=== PATIENT | female | born 1935 | race Caucasian/White ===

== ENCOUNTER 2024-01-16 19:47 | Emergency (ER) | payer MEDICARE, SELFPAY ==
[2024-01-16 19:51] VITALS: BP 117/72; PULSE 95; RESP 14; TEMP 36.7; O2SAT 99
[2024-01-16 19:53] VITALS: PULSE 95; RESP 20; O2SAT 98
--- NOTE | 2024-01-16 19:55 | ED.GENADUL1 ---
HPI - General Adult General Chief complaint: Recheck/Abnormal Lab/Rx Stated complaint: LOW HEMOGLOBIN Time Seen by Provider: 01/16/24 19:54 Limitations: other (Pt is non-verbal and has a trach/ventilated patient) Limitations comment: ventilated patient, non verbal History of Present Illness HPI narrative: This 88-year-old female was [place] [facility] [place] [facility] [place] of acute anemia. According to the history obtained from the retirement report and EMS She had dialysis earlier today and her hemoglobin was 3.9. Allegedly the hemoglobin was rechecked at the retirement and it was 6.1. There has been no notable bleeding. Patient is nonverbal, she presents with good vital signs, she is afebrile, her abdomen is soft. She has a feeding tube in her abdomen and is ventilated with tracheostomy. She is markedly contracted. She has a dialysis catheter in her left upper chest wall. Additional history was obtained from the patient's son and [id number]. 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 She has not been home for of ventilator since that time. Shortly after her bypass surgery she started requiring dialysis. She has been at [facility] [place] [facility] [place]. She was recently diagnosed with pneumonia and underwent a bronchoscopy in [facility] last week. According to the [id number] the patient's bronchoscopy was performed so that she could come off of the ventilator and be able to speak on her own. We did not receive an MAR from the [facility] so it is unknown whether or not she is on antibiotics currently Related Data Home Medications Medication Instructions Recorded Confirmed Menthol 5% jel topical BID PRN pain 01/16/24 Polyvinyl chloride-Povidone topical .2 hours PRN eye dryness 01/16/24 solution Vitamin D (with calcium) 25 mcg J-tube DAILY 01/16/24 01/16/24 acetaminophen 325 mg tablet 650 mg feeding tube Q6H PRN pain 01/16/24 01/16/24 (Tactinal) acetylcysteine inhalation 2 ml inhalation .q12 PRN secretions 01/16/24 01/16/24 amiodarone 200 mg tablet 200 mg feeding tube DAILY 01/16/24 01/16/24 aspirin 81 mg chewable tablet 81 mg feeding tube DAILY 01/16/24 01/16/24 atorvastatin 20 mg/5 mL (4 mg/mL) 20 mg feeding tube DAILY 01/16/24 01/16/24 oral suspension (AtorvaliQ) bisacodyl 10 mg rectal suppository 10 mg [place] DAILY PRN constipation 01/16/24 01/16/24 buspirone 5 mg tablet 5 mg feeding tube BID 01/16/24 01/16/24 ipratropium 0.5 mg-albuterol 3 mg 3 ml inhalation Q6H 01/16/24 01/16/24 (2.5 mg base)/3 mL nebulization soln lansoprazole 30 mg delayed 30 mg feeding tube DAILY 01/16/24 01/16/24 release,disintegrating tablet levothyroxine 50 mcg tablet 50 mcg feeding tube DAILY 01/16/24 01/16/24 (Euthyrox) melatonin 3 mg tablet 6 mg feeding tube DAILY PRN sleep 01/16/24 01/16/24 midodrine 10 mg tablet 10 mg feeding tube TID 01/16/24 01/16/24 ondansetron HCl 4 mg tablet 4 mg feeding tube Q6H PRN nausea 01/16/24 01/16/24 and vomiting potassium chloride 10 mEq oral 10 meq feeding tube DAILY 01/16/24 01/16/24 packet (Pokonza) sertraline 50 mg tablet (Zoloft) 100 mg feeding tube DAILY 01/16/24 01/16/24 sodium chloride 1,000 mg soluble 1,000 mg feeding tube DAILY 01/16/24 01/16/24 tablet vitamin B complex-vitamin C 100 1 tab feeding tube DAILY 01/16/24 01/16/24 mg-folic acid 1 mg tablet (Dialyvite) Review of Systems ROS Status of ROS 10 or more systems reviewed and unremarkable except as noted in history and below Exam Narrative Exam Narrative: Nurses note and vital signs reviewed and patient is not hypoxic.Rectal temperature was performed and the patient's rectal temperature is 90.8 General: Chronically ill and debilitated elderly female, she is contracted, she is easily ventilated, no respiratory distress, She responds to my questions by blinking her eyes Skin: Warm, dry, no pallor noted. There is no rash noted. Head: Normocephalic, atraumatic Eye: Normal conjunctiva, no drainage Ears, Nose, Mouth, and Throat: oral mucosa is moist. Neck; tracheostomy in place Cardiovascular: Regular Rate and Rhythm S1S2 Respiratory: Patient is in no distress, no accessory muscle use, lungs are clear to auscultation, no wheezing, rales or rhonchi Back: marked kyphosis/scoliosis GI: Normal bowel sounds, feeding tube in abdominal wall, abdomen is mildly tense Musculoskeletal: Thin extremities with muscle wasting and contractures Neurological: Non verbal, responds with blinking her eyes Constitutional Vital Signs, click to edit/add: Last Vital Signs Temp 98.0 F 01/16/24 19:51 Pulse 98 H 01/16/24 22:03 Resp 24 01/16/24 22:03 BP 108/67 01/16/24 22:03 Pulse Ox 100 01/16/24 22:03 O2 Del Method Room Air 01/16/24 22:03 FiO2 35 01/16/24 19:53 Course Vital Signs Vital signs: Vital Signs Temperature 98.0 F 01/16/24 19:51 Pulse Rate 95 H 01/16/24 19:51 Respiratory Rate 14 01/16/24 19:51 Blood Pressure 117/72 01/16/24 19:51 Pulse Oximetry 99 01/16/24 19:51 Oxygen Delivery Method Mechanical Ventilator 01/16/24 19:51 Temperature 98.0 F 01/16/24 19:51 Pulse Rate 98 H 01/16/24 22:03 Respiratory Rate 24 01/16/24 22:03 Blood Pressure 108/67 01/16/24 22:03 Pulse Oximetry 100 01/16/24 22:03 Oxygen Delivery Method Room Air 01/16/24 22:03 Fraction of Inspired Oxygen 35 01/16/24 19:53 Medical Decision Making [facility] Narrative Medical decision making narrative: This 88-year-old female who is vent dependent with a trach and has a feeding tube was transferred from the local extended care facility, [facility], for evaluation of a low hemoglobin. The patient had dialysis earlier today and allegedly the hemoglobin done at dialysis was 3.9. Follow-up hemoglobin was 6.1. The history is somewhat sketchy as we did not receive a detailed report from the extended care facility, a copy of her labs or recent treatment. According to the patient's son she did recently have pneumonia and a bronchoscopy was performed. Upon arrival she was placed on our ventilator and evaluated. She is pink warm and dry. A rectal temperature revealed a rectal temperature of 98. Her lungs were clear, her abdomen was soft, she is contracted in all extremities. KG was performed but is limited by patient movement and artifact but does not show any acute findings. Routine labs were ordered. She has an elevated white count at 20. She has an elevated BUN of 50 and Cr of 1.7, potassium is normal at 3.4. Occult blood is negative. Chest x-ray was negative for acute findings. Abdominal x-ray was negative for acute findings. Her hemoglobin was 9.7. I signed to the patient's family that she does not require a transfusion with a hemoglobin of 9.7. Cultures were ordered due to the elevated white count. The elevated WBC count was discussed with the patient's son and daughter in law who do not wish to have her cath'd for a urine. They request to have her returned to [facility]. We did receive a CODE STATUS from the [facility] and she is a DNRCC. Medical Records Medical records narrative: [place] [id number] XRay Report Signed Patient: MARK DOSHI MR#: [id number] : 1935 Acct:[id number] Age/Sex: 88 / F ADM Date: Loc: ER Attending Dr: Ordering Physician: Rocky Mayo Date of Service: 01/16/24 Procedure(s): XR chest 1V Accession Number(s): [id number] cc: Rocky Mayo~ [facility] [place] [address] Patient Name: MARK DOSHI MRN: [id number] date: 1935 Sex: F Assigned Patient Location: ER Current Patient Location: ER Accession/Order Number: [id number] Exam Date: 01/16/2024 20:25 Report Date: 01/16/2024 20:57 At the request of: ROCKY MAYO Procedure: XR chest 1V EXAMINATION: XR chest 1V, , 01/16/2024 8:25 PM EST INDICATION: elevated WBC HISTORY: Ordering Provider Reason for Exam: elevated WBC Technologist Note: Additional: COMPARISON: None. TECHNIQUE: Chest x-ray: One view. FINDINGS: Right-sided central venous catheter is seen in place with distal tip projecting over the expected location of the distal superior vena cava. Tracheostomy tube is seen in place. No obvious pneumothorax is seen. The heart size is normal. A small right pleural effusion may be seen. Mild peribronchial thickening is seen, pronounced in the bilateral upper lobes and left lower lobe, suggestive of bronchitic changes. Patient is postmedian sternotomy. XR/XR chest 1V IMPRESSION: Mild peribronchial thickening is seen, pronounced in the bilateral upper lobes and left lower lobe, suggestive of bronchitic changes. A small right pleural effusion may be seen. Electronically authenticated by: DUSTY SHERIFF Date: 01/16/2024 20:57 [place] [address] XRay Report Signed Patient: MARK DOSHI MR#: [id number] : 1935 Acct:[id number] Age/Sex: 88 / F ADM Date: Loc: ER Attending Dr: Ordering Physician: Rocky Mayo Date of Service: 01/16/24 Procedure(s): XR abdomen 1V Accession Number(s): [id number] cc: Rocky Marker~ [facility] [place] [id number] Patient Name: MARK DOSHI MRN: [id number] date: 1935 Sex: F Assigned Patient Location: ER Current Patient Location: ER Accession/Order Number: [id number] Exam Date: 01/16/2024 20:25 Report Date: 01/16/2024 20:58 At the request of: ROCKY MAYO Procedure: XR abdomen 1V EXAM: XR abdomen 1V HISTORY: elevated WBC count, peg tube COMPARISON: None. TECHNIQUE: Single supine view of the abdomen FINDINGS: This is a limited examination due to patient body habitus. Gastrostomy tube is seen in place. Nonspecific bowel gas pattern is seen. No air-filled distended loops of bowel is seen to suggest bowel obstruction. Diffuse bony demineralization is seen. XR/XR abdomen 1V IMPRESSION: Nonspecific bowel gas pattern. Electronically authenticated by: DUSTY SHERIFF Date: 01/16/2024 20:58 Lab Data Labs: Lab Results 01/16/24 Range/Units 20:00 WBC 20.4 H (4.0-11.0) 10^3/uL RBC 3.48 L (4.20-5.40) 10^6/uL Hgb 9.7 L (12.0-16.0) g/dL Hct 33.1 L (36.0-48.0) % MCV 95.1 (81.0-99.0) fL MCH 27.9 (26.7-34.0) pg MCHC 29.3 L (29.9-35.2) g/dL RDW 15.6 H (11.0-15.0) % Plt Count 367 (150-450) 10^3/uL MPV 9.1 L (9.5-13.5) fL Neut % (Auto) 81.7 H (43.0-75.0) % Lymph % (Auto) 7.6 L (20.5-60.0) % Briscoe % (Auto) 7.4 (1.7-12.0) % Eos % (Auto) 1.6 (0.9-7.0) % Baso % (Auto) 0.3 (0.2-2.0) % Neut # (Auto) 16.6 H (1.4-6.5) 10^3/uL Lymph # (Auto) 1.6 (1.2-3.8) 10^3/uL Briscoe # (Auto) 1.5 H (0.3-0.8) 10^3/uL Eos # (Auto) 0.3 (0.0-0.7) 10^3/uL Baso # (Auto) 0.1 (0.0-0.1) 10^3/uL Abs Immat Gran (auto) 0.29 H (0.00-0.03) 10^3/uL Imm/Tot Granulo (auto) 1.4 H (0.0-0.5) % Sodium 134 L (136-145) mmol/L Potassium 3.4 L (3.5-5.1) mmol/L Chloride 95 L (98-107) mmol/L Carbon Dioxide 32.9 H (21.0-32.0) mmol/L Anion Gap 9.5 BUN 50.0 H (7.0-18.0) mg/dL Creatinine 1.71 H (0.55-1.02) mg/dL Est GFR ( Amer) 34 L (>=60) Est GFR (Non-Af Amer) 28 L (>=60) BUN/Creatinine Ratio 29.2 Glucose 126 H (74-106) mg/dL Calcium 10.0 (8.5-10.1) mg/dL Total Bilirubin 0.3 (0.2-1.0) mg/dL AST 36 (15-37) U/L ALT 57 (14-59) U/L Alkaline Phosphatase 112 (46-116) U/L Total Protein 7.2 (6.4-8.2) g/dL Albumin 2.7 L (3.4-5.0) g/dL Globulin 4.5 g/dL Albumin/Globulin Ratio 0.6 Stool Occult Blood Negative Blood Type O Positive Antibody Screen Negative ECG Data Attestation: I personally reviewed and interpreted this ECG as follows: (EKG interpretation limited by patient movement, sinus rhythm at 90 bpm, no acute findings suggestive of ST segment elevation myocardial infarction or atrial fibrillation) Discharge Plan Discharge Chief Complaint: Recheck/Abnormal Lab/Rx Clinical Impression: Leukocytosis Patient Disposition: Hospice - Medical Facility Time of Disposition Decision: 21:36 Discharge Location: [facility] Condition: Fair Mode of Transportation: EMS Discharge Date/Time: 01/16/24 23:50
--- NOTE | 2024-01-16 20:00 | ECG_ITS ---
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
[2024-01-16 20:09] LABS: Basophils Absolute Auto 0.1 10^3/uL (0.0-0.1); Basophils Percent Auto 0.3 % (0.2-2.0); Eosinophils Absolute Auto 0.3 10^3/uL (0.0-0.7); Eosinophils Percent Auto 1.6 % (0.9-7.0); Hematocrit 33.1 % (36.0-48.0); Hemoglobin 9.7 g/dL (12.0-16.0); Immature Granulocytes Abs Auto 0.29 10^3/uL (0.00-0.03); Immature Granulocytes Pct Auto 1.4 % (0.0-0.5); Lymphocytes Absolute Auto 1.6 10^3/uL (1.2-3.8); Lymphocytes Percent Auto 7.6 % (20.5-60.0); Mean Corpuscular HGB Conc 29.3 g/dL (29.9-35.2); Mean Corpuscular Hemoglobin 27.9 pg (26.7-34.0); Mean Corpuscular Volume 95.1 fL (81.0-99.0); Mean Platelet Volume 9.1 fL (9.5-13.5); Monocytes Absolute Auto 1.5 10^3/uL (0.3-0.8); Monocytes Percent Auto 7.4 % (1.7-12.0); Neutrophils Absolute Auto 16.6 10^3/uL (1.4-6.5); Neutrophils Percent Auto 81.7 % (43.0-75.0); Platelet Count 367 10^3/uL (150-450); Red Blood Count 3.48 10^6/uL (4.20-5.40); Red Cell Distribution Width 15.6 % (11.0-15.0); White Blood Count 20.4 10^3/uL (4.0-11.0)
--- NOTE | 2024-01-16 20:16 | XR_ITS ---
The [address] [address] Patient Name: MARK DOSHI MRN: [id number] date: 1935 Sex: F Assigned Patient Location: ER Current Patient Location: ER Accession/Order Number: [id number] Exam Date: 01/16/2024 20:25 Report Date: 01/16/2024 20:57 At the request of: ROCKY MARKER Procedure: XR chest 1V EXAMINATION: XR chest 1V, , 01/16/2024 8:25 PM EST INDICATION: elevated WBC HISTORY: Ordering Provider Reason for Exam: elevated WBC Technologist Note: Additional: COMPARISON: None. TECHNIQUE: Chest x-ray: One view. FINDINGS: Right-sided central venous catheter is seen in place with distal tip projecting over the expected location of the distal superior vena cava. Tracheostomy tube is seen in place. No obvious pneumothorax is seen. The heart size is normal. A small right pleural effusion may be seen. Mild peribronchial thickening is seen, pronounced in the bilateral upper lobes and left lower lobe, suggestive of bronchitic changes. Patient is postmedian sternotomy. XR/XR chest 1V IMPRESSION: Mild peribronchial thickening is seen, pronounced in the bilateral upper lobes and left lower lobe, suggestive of bronchitic changes. A small right pleural effusion may be seen. Electronically authenticated by: DUSTY SHERIFF Date: 01/16/2024 20:57
--- NOTE | 2024-01-16 20:16 | XR_ITS ---
The [place] [id number] Patient Name: MARK DOSHI MRN: [id number] date: 1935 Sex: F Assigned Patient Location: ER Current Patient Location: ER Accession/Order Number: [id number] Exam Date: 01/16/2024 20:25 Report Date: 01/16/2024 20:58 At the request of: ROCKY MARKER Procedure: XR abdomen 1V EXAM: XR abdomen 1V HISTORY: elevated WBC count, peg tube COMPARISON: None. TECHNIQUE: Single supine view of the abdomen FINDINGS: This is a limited examination due to patient body habitus. Gastrostomy tube is seen in place. Nonspecific bowel gas pattern is seen. No air-filled distended loops of bowel is seen to suggest bowel obstruction. Diffuse bony demineralization is seen. XR/XR abdomen 1V IMPRESSION: Nonspecific bowel gas pattern. Electronically authenticated by: DUSTY SHERIFF Date: 01/16/2024 20:58
[2024-01-16 20:28] LABS: Alanine Aminotransferase 57 U/L (14-59); Albumin Globulin Ratio 0.6; Albumin Level 2.7 g/dL (3.4-5.0); Alkaline Phosphatase 112 U/L (46-116); Anion Gap 9.5; Aspartate Amino Transferase 36 U/L (15-37); BUN Creatinine Ratio 29.2; Bilirubin Total 0.3 mg/dL (0.2-1.0); Carbon Dioxide 32.9 mmol/L (21.0-32.0); Chloride 95 mmol/L (98-107); Estimated GFR (African America 34 (>=60); Estimated GFR (Non-African Ame 28 (>=60); Globulin 4.5 g/dL; Glucose 126 mg/dL (74-106); Potassium 3.4 mmol/L (3.5-5.1); Sodium 134 mmol/L (136-145); Total Protein 7.2 g/dL (6.4-8.2)
[2024-01-16 20:29] VITALS: O2SAT 100
[2024-01-16 20:55] VITALS: PULSE 98
[2024-01-16 21:13] VITALS: BP 111/65; PULSE 97; RESP 20; O2SAT 100
[2024-01-16 21:24] LABS: Occult Blood Negative
[2024-01-16 22:03] VITALS: BP 108/67; PULSE 98; RESP 24; O2SAT 100
== END 2024-01-16 23:50 | disposition home or self-care (01) ==
PROVIDERS: Emergency Provider Emergency Medicine; PCP Family Medicine
DX: D72.829 Elevated white blood cell count, unspecified (principal); Z99.2 Dependence on renal dialysis; Z93.0 Tracheostomy status; Z99.11 Dependence on respirator [ventilator] status; I25.2 Old myocardial infarction; Z87.01 Personal history of pneumonia (recurrent); Z79.82 Long term (current) use of aspirin; Z79.899 Other long term (current) drug therapy; Z79.890 Hormone replacement therapy; Z66 Do not resuscitate; Z93.1 Gastrostomy status
CPT/HCPCS: 36415; 71045; 74018; 80053; 85025; 86850; 86900; 86901; 87040; 93005; 94002; 99285; G0328